=== PATIENT | male | born 1980 | race African-American/Black ===

== ENCOUNTER 2016-04-16 06:33 | Day surgery (SDC) | payer OTHER ==
[2016-04-16] VITALS (10 sets, daily range): BP systolic 114–142; BP diastolic 69–97; PULSE 58–101; RESP 11–21; O2SAT 95–100
[~2016-04-16] VITALS: Ht 177.8 cm; Wt 106.7 kg
[~2016-04-16 06:33] MED LIST: CeFAZolin 2 Gm/50 mL D5W IV Premix IV ONE
[2016-04-16] MEDS ORDERED: Ondansetron 2 mg/mL 2 mL Inj ONE (06:34)
[2016-04-16] MEDS ORDERED: MetoCLOpramide 5 mg/mL 2 mL Inj ONE (06:34)
[2016-04-16] MEDS ORDERED: Propofol 10,000 mCg/mL 20 mL Inj ONE (06:34)
[2016-04-16] MEDS ORDERED: fentaNYL-PF 50 mCg/mL 2 mL Inj ONE (06:34)
[2016-04-16] MEDS ORDERED: Dexamethasone 4 mg/mL Inj ONE (06:34)
[2016-04-16] MEDS ORDERED: Lidocaine PF 1% 30 mL Inj ONE (06:34)
[2016-04-16] MEDS: Lactated Ringer's 1,000 ML IV SCH ×3 (07:33→09:57)
--- NOTE | 2016-04-16 08:09 | PCM.HPANE ---
Patient Data Date of Service: Apr 16, 2016 Surgeon Admitting Provider: Attending Provider:Dennise James MD Primary Care Physician:Willow Other Provider:Jennie Segura Anesthesia Reason for Visit Left Kidney Stone Ht/WT & BMI Height (Feet): 5 Height (Inches): 10.00 Weight (Kilograms): 106.700 Body Mass Index 33.00 Allergies Coded Allergies: No Known Allergies (Unverified , 04/15/16) Past Anesthesia History Anesthesia History: Denies:: Abnormal Airway, Anesthesia Reactions, Difficult Intubation, Fam Anesthesia Reaction Diabetes History Hx Diabetes?: No MRSA MRSA: No Medications Hypertension Medication: No Home Meds Incl Beta Dianne: No No Active Prescriptions or Reported Meds History HEENT History: Denies:: Abnormal Airway Cataracts Difficult Intubation Dysphagia Glaucoma Hearing Problem Sinus Problem TMJ Cardiovascular History: Denies:: AICD Abdominal Aortic Aneurism Atrial Fibrillation Edema Heart Murmur Hypertension Irregular Heartbeat Pacemaker Hx of Respiratory Problem?: No Respiratory History: Positive for:: Use of C-PAP Machine (sleep study negative ) Denies:: Asthma COPD Emphysema Oxygen Administration Pneumonia Tuberculosis Use of Inhalers / NEBS Hx Neurologic Problems?: No Neurological History: Denies:: CVA Headaches Multiple Sclerosis Parkinson's Disease Seizures TIA Other Neurological Pertinent: R palm numbness closer to thumb Hx of GI Problems?: No Gastrointestinal History: Denies:: Cirrhosis Diverticulitis Gall Bladder Disease Gastroesphageal Reflux Gastrointestinal Bleeding Heartburn Hepatitis Hiatal Hernia Liver Disease Rectal Bleeding Hx of Problems?: Yes Genitourinary History: Positive for:: Kidney Stones (left stone current admission problem) Denies:: Urinary Tract Infection Other Pertinent History: prior history of stones, passed spontaneously Male Hx: Denies:: Prostate Problems Skin History: Denies:: History Skin Disorders? Pressure Ulcers Hx Musculoskeletal Problems?: No Musculoskeletal History: Denies:: Back Injury Fibromyalgia Joint Replacement Musculoskeletal Trauma Myasthenia Gravis Osteoarthritis Rheumatoid Arthritis Hx of Psycho/Social Problems?: No Psycho Social History: Denies:: Anxiety Hx Depression Hx Surgeries?: Yes (thumb tendon right x 3, shoulder x 2, cysto, eardrum as child) Hx Any Other Health Problems?: Yes Other History: Denies:: Cancer Thyroid Disease (tested for, neg results) History Blood Transfusions: Positive for:: Accept Blood Products? Denies:: Blood Transfusions Hx Diabetes: No Hx Alcohol Use: NoHx Substance Use: NoHave You Smoked inLast 12 mo: No Stop/Bang S-Snoring: Do You Snore Loudly: Yes T-Tired: feel tired, fatigued: No O-Obsered: Observed not breath: No P-Blood Pressure: treated: No B- Body Mass Index > 35 kg/m2: No A- Age over 50: No N- Neck Large Circumference: No G- Gender Male: Yes SUZANNA Total Score: 2 SUZANNA Risk Assessment: Low Risk, <3 Yes Risk Assessment Category Category 1A: Patient has history of documented sleep apnea, and HAS NOT received any narcotic, sedative or anesthesia administration during this stay. Category 1B: Patient has history of documented sleep apnea, and HAS received any narcotic , sedative or anesthesia administration during this stay Category 2: Patient has SUSPECTED Obstructive Sleep Apnea, and HAS received any narcotic , sedative or anesthesia administration during this stay. Category 3: Patient has SUSPECTED Obstructive Sleep Apnea and HAS NOT received narcotic, sedative or anesthesia administration during this stay. Category 4: Outpatient in Procedural Areas with known sleep apnea or who screen positive for High Risk via the STOP/BANG questionnaire. Exam Exam Vital Signs Vital Signs Date Time Temp Pulse Resp B/P Pulse Ox O2 Delivery O2 Flow Rate FiO2 04/16/16 07:11 36.1 58 14 132/87 99 Room Air General Appearance: Alert, Oriented X3, Cooperative, No Acute Distress HEENT/AIRWAY: MP 2, Neck Movement (from), Mouth Opening (3), Other (tmd3) Lungs: Clear to Auscultation Heart: Exam Unremarkable, Regular Rate/Rhythm, Normal S1, Normal S2, No Murmurs /Rubs/Gallops Meds/Labs/Diagnostics Admission Meds Current Medications Lactated Ringer's (Lr) 1,000 ml @ 120 mls/hr [id number] IV Last administered on t 07:33; Start 04/16/16 at 05:00; Stop 04/16/16 at 13:19 Plan Impression Patient chart reviewed, patient interviewed and anesthestic plan with risks, benefits, and alternatives discussed, and informed consent obtained. NPO Status: 0430 WATER ASA Physical Status: ASA1 Normal Healthy Anesthetic Plan: GA Bene/Risks/Altern/Consents: Yes HP Complete Prior to Induction: Yes Boni Maciel MD Apr 16, 2016 08:09
[2016-04-16] MEDS ORDERED: EPHEDrine Sulfate 50 mg/mL Inj IVPUSH PRN (09:05)
[2016-04-16] MEDS ORDERED: Dexamethasone 4 mg/mL Inj IVPUSH PRN (09:05)
[2016-04-16] MEDS ORDERED: Ondansetron 2 mg/mL 2 mL Inj IVPUSH PRN (09:05)
[2016-04-16] MEDS ORDERED: MetoCLOpramide 5 mg/mL 2 mL Inj IVPUSH PRN (09:05)
[2016-04-16] MEDS ORDERED: Lactated Ringer's 500 ML IV PRN (09:05)
[2016-04-16] MEDS ORDERED: Phenylephrine 10,000 mCg/mL Inj IVPUSH PRN (09:05)
[2016-04-16] MEDS ORDERED: Lactated Ringer's 1,000 ML IV SCH (09:05)
[2016-04-16] MEDS ORDERED: HYDROmorphone 1 mg/mL Inj IVPUSH PRN (09:05)
[2016-04-16] MEDS ORDERED: Ondansetron 8 mg ODT Tablet PO PRN (09:40)
[2016-04-16] MEDS: fentaNYL-PF 50 mCg/mL 2 mL Inj IVPUSH PRN ×2 (09:54→10:07)
[2016-04-16] MEDS: HYDROcodone-APAP 5-325 mg Tablet PO PRN ×2 (10:37→11:17)
--- NOTE | 2016-04-16 14:06 | DRSVH ---
PROCEDURE: X-RAY KUB ([id number]) INDICATIONS: LEFT KIDNEY STONE TECHNIQUE: One view of the abdomen acquired. COMPARISON: [facility], CR, XR KUB, 03/10/2016, 12:57. FINDINGS: Surgical changes and devices: None. Bowel: Bowel gas pattern is normal. Soft tissues: 5 mm and 8 mm calcification again seen projected over the mid and lower pole of the lef t kidney. Bones: No suspicious bony lesions. IMPRESSION: Calcifications again seen projected over the left kidney. Dictated by: Kenan Bojorquez RRA Interpreted: Clarice Harris MD on 04/16/2016 at 14:05 Transcribed by: ANNA on 04/16/2016 at 14:06 Approved by: Clarice Harris MD, PhD on 04/16/2016 at 17:27
--- NOTE | 2016-04-16 14:20 | PCM.ANEP1 ---
Post Anesthesia Phase 1 PACU Phase 1 Assessment Date of Service: Apr 16, 2016 Vital Signs Vital Signs Date Time Temp Pulse Resp B/P Pulse Ox O2 Delivery O2 Flow Rate FiO2 04/16/16 11:03 82 16 142/97 95 Room Air 04/16/16 10:24 36.2 85 11 133/82 100 Room Air 04/16/16 10:15 36.2 92 19 130/80 96 Room Air 04/16/16 10:00 90 16 137/91 100 Simple Mask 6 04/16/16 09:55 36.4 97 21 133/89 99 Simple Mask 6 04/16/16 09:50 101 15 127/87 97 Simple Mask 7 04/16/16 09:45 82 14 114/69 97 Simple Mask 7 04/16/16 09:40 87 14 125/72 96 Simple Mask 7 04/16/16 09:37 36.8 138/86 04/16/16 07:11 36.1 58 14 132/87 99 Room Air Anesthetic Administered: GA Level of Alertness: Awake, talking FORD's with Equal Strength: Yes Pain: No Pain Scale Score: 0 Nausea or Vomiting: No Airway Device: Oralpharangeal Airway Lungs: Clear to Auscultation Boni Maciel MD Apr 16, 2016 14:20
--- NOTE | 2016-04-16 14:21 | PCM.ANEP2 ---
Post Anesthesia Evaluation ASA/CMS Post Anesthesia VS in Patient's Normal Range?: Yes Resp Stable; Airway Patent?: Yes CV Function & Hydration Stable: Yes Mental Status Recovered?: Yes Pain control Satisfactory?: Yes N/V Control Satisfactory?: Yes Boni Maciel MD Apr 16, 2016 14:21
--- NOTE | 2016-04-16 19:42 | OP ---
[address] [address] OPERATIVE REPORT PATIENT: ALEJANDRA LENTZ : 1980 MR#: [id number] ADMIT: 04/16/2016 JOB ID: [id number] DATE OF SURGERY: 04/16/2016 PROCEDURE: Left-sided shockwave lithotripsy, extracorporeal. SURGEON: Dennise James MD ANESTHESIA: General, with Dr. Maciel. PREOPERATIVE DIAGNOSIS(ES): Left-sided nonobstructing renal calculi, two visible on KUB, 0.8 and 0.4 cm in greatest diameter. POSTOPERATIVE DIAGNOSIS(ES): Left-sided nonobstructing renal calculi, two visible on KUB, 0.8 and 0.4 cm in greatest diameter. INDICATIONS: The patient is a 35-year-old gentleman, a [employer] member, referred for treatment of stones to return to flight status. They are asymptomatic but need to be treated for his work. He was counseled about risks, benefits, and treatment options, and elected shock wave lithotripsy for his stones which were visible on KUB. PROCEDURE IN DETAIL: After appropriate informed consent was obtained, the patient was brought to the operating room. SCDs were placed. Adequate general anesthesia was induced. He was carefully placed in the supine position, in the proper position on the shockwave table. The fluoroscope head was brought in. Stones both were readily visible and were well treated. A total of 2000 shocks were delivered; 1500 were delivered to the lower stone with power level 4-9, 500 to the upper stone at power level four escalating to nine. There was a pause after the initial shocks to the kidney. The rate was 60 initially, brought up to 90 as the stone appeared to be breaking up very nicely. There was evidence of good effects, with both stones becoming hazier or invisible by the end of the case. The patient tolerated the procedure well. The skin condition was good. He was awakened and taken in stable condition to the postanesthesia care unit.
== END 2016-04-16 23:59 | disposition home or self-care (01) ==
LOC: SAS 06:33
PROVIDERS: ATTEND Urology
DX: N20.0 Calculus of kidney (principal)
CPT/HCPCS: 50590; 74000; J1100; J2250; J2405; J2765; J7120

== ENCOUNTER 2016-05-14 09:37 | Day surgery (SDC) | payer OTHER ==
[~2016-05-14] VITALS: Ht 177.8 cm; Wt 110.1 kg
[2016-05-14] VITALS (11 sets, daily range): BP systolic 106–136; BP diastolic 65–97; PULSE 62–96; RESP 10–20; O2SAT 94–98
[~2016-05-14 09:37] MED LIST changes: -CeFAZolin 2 Gm/50 mL D5W IV Premix IV ONE; +Lactated Ringer's 1,000 ML IV SCH
[2016-05-14] MEDS ORDERED: Lidocaine PF 1% 30 mL Inj ONE (09:38)
[2016-05-14] MEDS ORDERED: Ondansetron 2 mg/mL 2 mL Inj ONE (09:38)
[2016-05-14] MEDS ORDERED: Propofol 10,000 mCg/mL 20 mL Inj ONE (09:38)
[2016-05-14] MEDS ORDERED: Dexamethasone 4 mg/mL Inj ONE (09:38)
[2016-05-14] MEDS ORDERED: fentaNYL-PF 50 mCg/mL 2 mL Inj ONE (09:38)
[2016-05-14] MEDS ORDERED: MetoCLOpramide 5 mg/mL 2 mL Inj ONE (09:38)
[2016-05-14] MEDS ORDERED: Lactated Ringer's 1,000 ML IV ONE (10:20)
--- NOTE | 2016-05-14 11:25 | PCM.HPANE ---
Patient Data Date of Service: May 14, 2016 Surgeon Admitting Provider: Attending Provider:Clarice Smith MD Primary Care Physician:Willow Other Provider:Jennie Segura Anesthesia Reason for Visit Left Kidney Stone Ht/WT & BMI Height (Feet): 5 Height (Inches): 10.00 Height (Centimeters): 177.8 Weight (Kilograms): 110.130 Body Mass Index 34.00 Allergies Coded Allergies: No Known Allergies (Unverified , 04/15/16) Past Anesthesia History Anesthesia History: Denies:: Abnormal Airway, Anesthesia Reactions, Difficult Intubation, Fam Anesthesia Reaction Diabetes History Hx Diabetes?: No MRSA MRSA: No Medications Home Meds Incl Beta Dianne: No No Active Prescriptions or Reported Meds History HEENT History: Denies:: Abnormal Airway Cataracts Difficult Intubation Dysphagia Hearing Problem Sinus Problem TMJ Cardiovascular History: Denies:: AICD Abdominal Aortic Aneurism Atrial Fibrillation Edema Heart Murmur Hypertension Irregular Heartbeat Pacemaker Hx of Respiratory Problem?: No Respiratory History: Positive for:: Use of C-PAP Machine (sleep study negative ) Denies:: Asthma COPD Emphysema Oxygen Administration Pneumonia Tuberculosis Hx Neurologic Problems?: No Neurological History: Denies:: CVA Headaches Multiple Sclerosis Parkinson's Disease Seizures Hx of GI Problems?: No Gastrointestinal History: Denies:: Cirrhosis Diverticulitis Gastroesphageal Reflux Gastrointestinal Bleeding Heartburn Hepatitis Hiatal Hernia Rectal Bleeding Hx of Problems?: Yes Genitourinary History: Positive for:: Kidney Stones (left stone current admission problem) Denies:: Urinary Tract Infection Male Hx: Denies:: Prostate Problems Skin History: Denies:: History Skin Disorders? Pressure Ulcers Hx Musculoskeletal Problems?: No Musculoskeletal History: Denies:: Back Injury Joint Replacement Musculoskeletal Trauma Hx of Psycho/Social Problems?: No Psycho Social History: Denies:: Anxiety Hx Depression Hx Surgeries?: Yes (thumb tendon right x 3, shoulder x 2, cysto, eardrum as child) Hx Any Other Health Problems?: Yes Other History: Denies:: Cancer Thyroid Disease (tested for, neg results) History Blood Transfusions: Denies:: Blood Transfusions Hx Diabetes: No Hx Alcohol Use: NoHx Substance Use: No Smoking Status: Never Smoker Have You Smoked inLast 12 mo: No Stop/Bang S-Snoring: Do You Snore Loudly: Yes T-Tired: feel tired, fatigued: No O-Obsered: Observed not breath: No P-Blood Pressure: treated: No B- Body Mass Index > 35 kg/m2: No A- Age over 50: No N- Neck Large Circumference: No G- Gender Male: Yes SUZANNA Risk Assessment: Low Risk, <3 Yes Risk Assessment Category Category 1A: Patient has history of documented sleep apnea, and HAS NOT received any narcotic, sedative or anesthesia administration during this stay. Category 1B: Patient has history of documented sleep apnea, and HAS received any narcotic , sedative or anesthesia administration during this stay Category 2: Patient has SUSPECTED Obstructive Sleep Apnea, and HAS received any narcotic , sedative or anesthesia administration during this stay. Category 3: Patient has SUSPECTED Obstructive Sleep Apnea and HAS NOT received narcotic, sedative or anesthesia administration during this stay. Category 4: Outpatient in Procedural Areas with known sleep apnea or who screen positive for High Risk via the STOP/BANG questionnaire. Exam Exam Vital Signs Vital Signs Date Time Temp Pulse Resp B/P Pulse Ox O2 Delivery O2 Flow Rate FiO2 05/14/16 10:16 36.8 62 14 136/96 97 Room Air General Appearance: Alert, Oriented X3, Cooperative, No Acute Distress HEENT/AIRWAY: MP 2, Neck Movement (FROM), Mouth Opening (large), Other (tMD>3FB ) Lungs: Clear to Auscultation, Normal Air Movement Heart: Exam Unremarkable, Regular Rate/Rhythm, No Murmurs/Rubs/Gallops Meds/Labs/Diagnostics Admission Meds Current Medications Lactated Ringer's (Lr) 1,000 ml @ ud STK-MED ONCE IV Last administered on 05/14t 10:20; Start 05/14/16 at 10:20; Stop 05/14/16 at 10:21; Status DC Plan Impression Patient chart reviewed, patient interviewed and anesthestic plan with risks, benefits, and alternatives discussed, and informed consent obtained. NPO Status: confirmed before mn ASA Physical Status: ASA1 Normal Healthy Anesthetic Plan: GA Bene/Risks/Altern/Consents: Yes HP Complete Prior to Induction: Yes Randall Torres MD May 14, 2016 11:25
[2016-05-14] MEDS ORDERED: Lactated Ringer's 500 ML IV PRN (12:21)
[2016-05-14] MEDS ORDERED: Lactated Ringer's 1,000 ML IV SCH (12:21)
[2016-05-14] MEDS ORDERED: Phenylephrine 10,000 mCg/mL Inj IVPUSH PRN (12:25)
[2016-05-14] MEDS ORDERED: hydrALAZINE 20 mg/mL Inj IVPUSH PRN (12:25)
[2016-05-14] MEDS ORDERED: MetoCLOpramide 5 mg/mL 2 mL Inj IVPUSH PRN (12:25)
[2016-05-14] MEDS ORDERED: HYDROmorphone 1 mg/mL Inj IVPUSH PRN (12:25)
[2016-05-14] MEDS ORDERED: fentaNYL-PF 50 mCg/mL 2 mL Inj IVPUSH PRN (12:25)
[2016-05-14] MEDS ORDERED: Dexamethasone 4 mg/mL Inj IVPUSH PRN (12:25)
[2016-05-14] MEDS ORDERED: EPHEDrine Sulfate 50 mg/mL Inj IVPUSH PRN (12:25)
[2016-05-14] MEDS ORDERED: Ondansetron 2 mg/mL 2 mL Inj IVPUSH PRN (12:25)
[2016-05-14] MEDS ORDERED: Labetalol 5 mg/mL 4 mL Inj IV PRN (12:25)
[2016-05-14] MEDS ORDERED: Atropine 0.4 mg/mL Inj IVPUSH PRN (12:25)
[2016-05-14] MEDS ORDERED: Ondansetron 8 mg ODT Tablet PO PRN (12:35)
[2016-05-14] MEDS ORDERED: oxyCODONE-Acetamin 5-325 mg Tablet PO PRN (12:35)
--- NOTE | 2016-05-14 13:08 | DRSVH ---
PROCEDURE: X-RAY KUB ([id number]) INDICATIONS: LEFT KIDNEY STONE TECHNIQUE: One view of the abdomen acquired. COMPARISON: [facility], CR, XR KUB, 03/10/2016, 12:57. Outside Film, CT, CT ABD PELVIS WO CON, 03/24/2016, 9:09. [facility], CR, XR KUB, 04/16/2016, 7:02. [facility], CR, XR KUB, 05/01/2016, 8:56. FINDINGS: Surgical changes and devices: None. Bowel: Bowel gas pattern is normal. Soft tissues: Several calcifications again seen projected over the left kidney similar to prior exami nation the largest measuring roughly 8 mm. Bones: No suspicious bony lesions. IMPRESSION: Left renal calcifications redemonstrated largest measuring 8 mm similar to prior exam. Dictated by: Kenan Bojorquez RRBetty Interpreted: Shiela Allison MD on 05/14/2016 at 13:05 Transcribed by: JONAS on 05/14/2016 at 13:07 Approved by: Shiela Allison M.D. on 05/14/2016 at 16:57
--- NOTE | 2016-05-14 13:23 | PCM.ANEP1 ---
Post Anesthesia Phase 1 PACU Phase 1 Assessment Date of Service: May 14, 2016 Vital Signs Vital Signs Date Time Temp Pulse Resp B/P Pulse Ox O2 Delivery O2 Flow Rate FiO2 05/14/16 13:15 71 16 98 Room Air 05/14/16 13:10 71 18 134/97 95 Room Air 05/14/16 13:00 87 13 125/84 95 Room Air 05/14/16 12:55 96 20 121/84 94 Room Air 05/14/16 12:50 36.5 79 14 125/93 98 Room Air 05/14/16 12:45 82 14 112/69 98 Simple Mask 8 05/14/16 12:40 84 14 106/73 98 Simple Mask 8 05/14/16 12:35 88 10 110/65 97 Simple Mask 8 05/14/16 12:34 36.6 88 10 107/68 97 Simple Mask 8 05/14/16 10:16 36.8 62 14 136/96 97 Room Air Anesthetic Administered: GA Level of Alertness: Awake, talking FORD's with Equal Strength: Yes Pain: Yes Pain Scale Score: 4 Nausea or Vomiting: No Airway Device: Oralpharangeal Airway (removed after arrival in PACU) Oxygen Delivery: Room Air Lungs: Clear to Auscultation, Normal Air Movement Dermatome Level: Full Sensation Randall Torres MD May 14, 2016 13:23
--- NOTE | 2016-05-14 13:52 | OP ---
[address] [address] OPERATIVE REPORT PATIENT: ALEJANDRA LENTZ : 1980 MR#: [id number] ADMIT: 05/14/2016 JOB ID: [id number] DATE OF SURGERY: 05/14/2016 SURGEON: Clarice Smith MD. PREOPERATIVE DIAGNOSIS(ES): Left renal calculus. POSTOPERATIVE DIAGNOSIS(ES): Left renal calculus. PROCEDURE: Left extracorporeal shock wave lithotripsy. ANESTHESIA: General anesthetic. ANESTHESIOLOGIST: Randall Torres MD. DESCRIPTION OF PROCEDURE: Under general anesthetic, the patient was placed in a supine position. Stone was identified radiographically. A total of 1000 shocks were delivered with complete disappearance of the stone. The patient tolerated the procedure well and left the operating room in good condition. I will see him with a KUB in one week's time.
--- NOTE | 2016-05-14 14:41 | PCM.ANEP2 ---
Post Anesthesia Evaluation ASA/CMS Post Anesthesia Date of Service: May 14, 2016 VS in Patient's Normal Range?: Yes Resp Stable; Airway Patent?: Yes CV Function & Hydration Stable: Yes Mental Status Recovered?: Yes Pain control Satisfactory?: Yes N/V Control Satisfactory?: Yes Randall Torres MD May 14, 2016 14:41
[2016-05-14] MEDS ORDERED: Belladonna Alk-Opium 60 mg Rectal Suppository RECTAL SCH (20:30)
== END 2016-05-14 23:59 | disposition home or self-care (01) ==
LOC: SAS 09:37
PROVIDERS: ATTEND Urology
DX: N20.0 Calculus of kidney (principal)
CPT/HCPCS: 50590; 74000; J1100; J2250; J2405; J2765; J3010; J7120